=== PATIENT | female | born 1960 | race Caucasian/White ===

== ENCOUNTER 2025-07-07 14:58 | Outpatient (REF) | payer OTHER, SELFPAY | END 2025-07-07 14:59 | disposition home or self-care (01) | LOC: HO.LAB 14:58 | PROVIDERS: PCP Family Medicine; Visit Provider Physician Assistant Medical | DX: R30.0 Dysuria (principal); R39.15 Urgency of urination; Z13.89 Encounter for screening for other disorder | CPT/HCPCS: 81003; 87086; 87088; 87186 ==

== ENCOUNTER 2025-07-07 14:58 | Outpatient (AMB) | payer OTHER, SELFPAY ==
[2025-07-07 15:05] VITALS: BP 120/80; PULSE 75; TEMP 36.6; O2SAT 98; BMI 30.4
--- NOTE | 2025-07-07 15:05 | MHC.OFFWIV ---
Intake Vital Signs 07/07/25 15:05 Height 5 ft 4 in Weight 177 lb BMI 30.4 BP 120/80 Blood Pressure Location Lt brachial Position Sitting Pulse 75 Pulse Source Pulse Oximeter Temp 98 F Temp Source Oral Pulse Oximetry (%) 98 Oxygen Delivery Method Room Air Intake Visit Reasons: EP Possible UTI Intake Note: Patient presents c/o urinary pressure, urgency, burning since yesterday Allergies No Known Allergies Allergy (Verified 07/07/25 15:11) HPI HPI Comments History of Present Illness Details History - The patient is a 65 year old individual presenting with symptoms consistent with a urinary tract infection, which began yesterday. - The patient reports urinary urgency, burning, and the onset of pressure today. - The patient denies any associated back pain, visible blood in the urine, fevers, chills, nausea, or vaginal discharge. - The patient has not had a urinary tract infection recently and has not taken any recent antibiotics. - The patient is postmenopausal and has no history of kidney stones. - There are no known allergies to antibiotics. Physical Exam General: Cooperative, healthy appearing, comfortable, no acute distress and well developed Cardiac: Normal S1 and S2. RRR, no M/R/G noted. Respiratory: Normal respiratory effort and able to speak in complete sentences. Clear to auscultation bilaterally. No w/r/r noted. Skin: No rashes or lesions noted. GI: Normal inspection. Normal BS noted. Soft, non-tender, non-distended. No TTP of all 4 quadrants. No guarding or rebound tenderness noted. Back: Negative CVA bilaterally Patient was informed and verbally consented to the use of an ambient scribe for clinic note documentation during this visit. Review of Systems Const All systems reviewed & are unremarkable except as noted in HPI and below Physical Exam Vital Signs: Last Vital Signs Temp 98 F 07/07/25 15:05 Pulse 75 07/07/25 15:05 BP 120/80 07/07/25 15:05 Pulse Ox 98 07/07/25 15:05 Oxygen Delivery Method Room Air 07/07/25 15:05 BMI result Body Mass Index 30.4 Results AMB Urinalysis, Automated UA Leukoctes 0 Roderick/uL Last Edit by Regina Bee CMA on 07/07/25 15:16 UA Nitrite Negative Last Edit by Regina Bee CMA on 07/07/25 15:16 UA Urobilinogen 0.2 mg/dL Last Edit by Regina Bee, [employer] on 07/07/25 15:16 UA Protein 0 mg/dL Last Edit by Regina Bee, [employer] on 07/07/25 15:16 UA pH 6.0 Last Edit by Regina Bee, [employer] on 07/07/25 15:16 UA Blood 80 Unruly/uL Last Edit by Regina Bee, [employer] on 07/07/25 15:16 UA Specific [place] 1.025 Last Edit by Regina Bee, [facility] on 07/07/25 15:16 UA Ketone Negative Last Edit by Regina Bee, [employer] on 07/07/25 15:16 UA Bilirubin 0 mg/dL Last Edit by Regina Bee, [employer] on 07/07/25 15:16 UA Glucose 0 mg/dL Last Edit by Regina Bee, [employer] on 07/07/25 15:16 Results Reviewed Results Reviewed: Laboratory Last Values Urine pH (Auto) 6.0 07/07/25 15:15 Specific [place] (Auto) 1.025 07/07/25 15:15 Urine Protein (Auto) 0 mg/dL 07/07/25 15:15 Glucose (UA)(Auto) 0 mg/dL 07/07/25 15:15 Urine Ketones (Auto) Negative 07/07/25 15:15 Urine Blood (Auto) 80 Unruly/uL H* 07/07/25 15:15 Urine Nitrite (Auto) Negative 07/07/25 15:15 Urine Bilirubin (Auto) 0 mg/dL 07/07/25 15:15 Urine Urobilinogen (Auto) 0.2 mg/dL 07/07/25 15:15 Leukocyte Esterase (Auto) 0 Roderick/uL 07/07/25 15:15 Assessment & Plan Assessment & Plan (1) Dysuria: Code(s): R30.0 - Dysuria Plan Most likely early UTI UA 2+ blood Plan - A urine dipstick test was performed, revealing a small amount of blood, which is consistent with an early urinary tract infection. - An antibiotic will be prescribed to begin treatment for a presumed E. coli infection. - A urine culture will be sent for analysis to confirm the causative bacteria. - The patient was advised to drink plenty of fluids and cranberry juice. - A follow-up call is scheduled for Saturday to discuss the culture results and adjust the antibiotic if necessary. Orders: Orders Urine Culture Today N39.0 - Urinary tract infection, site not specified AMB Urinalysis Automated Today Z13.9 - Encounter for screening, unspecified Medications: New cefuroxime axetil 500 mg PO Q12H 10 tabs 0RF Coding Level of Care Code Est Pt Level 3 (79823) Diagnoses Dysuria R30.0
--- OUTSIDE RECORDS SUMMARY | 2025-07-07 17:35 | XMS_ITS | Encounter Summary ---
Author Organization [facility] Address [address] [place] [id number] Phone Care Team Providers Care Pain Management Specialist Name Role Phone Soraida Baker MD Unavailable [phone] Soraida Baker MD Primary Care Provider Encounter Details Date Type Department Care Team ([facility] st Contact Info) Description 01/31/2021 Ancillary Orders [facility], X-Ray - [address] [place] [address] Sangita Keen, [place] [address] [place] [address] Pain disorder Social History Tobacco Use Types Packs/Day Years Used Date Smoking Tobacco: Never Assessed Comments Unknown Sex and Gender Information Value Date Recorded Sex Assigned at Not on file Legal Sex Female 8:33 PM EDT Gender Identity Not on file Sexual Orientation Not on file documented as of this encounter Plan of Treatment Not on file documented as of this encounter Results * XR SHOULDER 2 VIEWS (BILATERAL) (01/31/2021 12:05 PM EDT) Anatomical Region Laterality Modality Shoulder Left Computed Radiogr aphy 01/31/2021 12:1 3 PM EDT Impressions 01/31/2021 12:15 PM EDT No findings to account for pain. Narrative 01/31/2021 12:15 PM EDT HISTORY: As above. COMPARISON: None. BILATERAL SHOULDER RADIOGRAPH FINDINGS: 8 images obtained. No acute fracture or malalignment. Joint spaces are preserved. No destructive or suspicious bone lesions. No rotator cuff calcifications. Imaged lungs are clear. Procedure Note Pablo Cody MD - 01/31/2021 HISTORY: As above. COMPARISON: None. BILATERAL SHOULDER RADIOGRAPH FINDINGS: 8 images obtained. No acute fracture or malalignment. Joint spaces are preserved. Nodestructive or suspicious bone lesions. No rotator cuff calcifications.Imaged lungs are clear. IMPRESSION: No findings to account for pain. us Sangita Mojica DC IMG XR UPPER EXTRE MITY Final Result documented in this encounter Visit Diagnoses Diagnosis Pain disorder Generalized pain Pain disorder Generalized pain documented in this encounter Care Teams Pain Management Specialist Relationship Specialty Start Date End Date Soraida Baker MD [address] [place] [id number] PCP - General Family Medicine 01/31/21 Soraida Baker MD [address] [place] [phone] Historical LMR Provider 05/29/17 2 documented as of this encounter Additional Source Comments The information contained in this document represents components of the legal health record. It is not the complete legal health record.[facility]
--- OUTSIDE RECORDS SUMMARY | 2025-07-07 17:35 | XMS_ITS | Clinical Summary ---
Author Organization [facility] Address [address] [place] [address] Phone Care Team Providers Care [employer] Technical Lead Senior Developer Name Role Phone Soraida Baker MD Primary Care Provider [phone] Social History Tobacco Use Types Packs/Day Years Used Date Smoking Tobacco: Never Assessed Comments No Sex and Gender Information Value Date Recorded Sex Assigned at Not on file Legal Sex Female 11:48 PM EST Gender Identity Not on file Sexual Orientation Not on file Obstetrics History Para Term AB IAB SAB Ectopic Multiple Livin g Live Births 2 Last Filed Vital Signs Vital Sign Reading Time Taken Comments Blood Pressure - - Pulse - - Temperature - - Respiratory Rate - - Oxygen Saturation - - Inhaled Oxygen Concentration - - Weight 74.8 kg (165 lb) 08/21/2024 10:42 AM EST Height 162.6 cm (5' 4 ) 08/21/2024 10:42 AM EST Body Mass Index 28.32 08/21/2024 10:42 AM EST Plan of Treatment Health Maintenance Due Date Last Done Comments Colorectal Cancer Screening: Colonoscopy 1962 Cervical Cancer Screening: Pap Smear 1983 Pneumococcal Vaccine: 50+ Years (1 of 1 - PCV) 2012 Zoster Vaccines (1 of 2) 2012 HIV Screening 07/15/2022 Hepatitis C Screening 07/15/2022 Social Influencers of Health Screening 07/15/2022 Depression Screening 08/12/2024 COVID-19 Vaccine ( season) 2025 06/04/2024, 06/05/2022, 12/21/2021, Additional history exists Influenza Vaccine (#1) 2025 4, 06/04/2023, 05/28/2022, Additional history exists Breast Cancer Screening 08/21/2026 08/21/19 25, 07/19/2023, 07/17/2022, Additional history exists DTaP,Tdap,and Td Vaccines (2 - Td or Tdap) 01/01/2028 12/31/2017 RSV Immunization Adult Patients (1 - 1-dose 75+ series) 2037 MMR Vaccines Aged Out 11/24/2008 No longer eligi ble based on patient's age to complete this topic HIB Vaccines Aged Out No longer eligi ble based on patient's age to complete this topic HPV Vaccines Aged Out No longer eligi ble based on patient's age to complete this topic Hepatitis A Vaccines Aged Out No long er eligible based on patient's age to complete this topic Hepatitis B Vaccines Aged Out No long er eligible based on patient's age to complete this topic IPV Vaccines Aged Out No longer eligi ble based on patient's age to complete this topic Meningococcal ACWY Vaccine Aged Out N o longer eligible based on patient's age to complete this topic Meningococcal B Vaccine Aged Out No l onger eligible based on patient's age to complete this topic RSV Immunization Patients Under 20 months Aged Out No longer eligible based on patient's age to complete this topic Varicella Vaccines Aged Out No longer eligible based on patient's age to complete this topic Procedures Procedure Name Priority Date/Time Associated Diagnosis Comments MG MAMMO DIGITAL SCREENING W JI BILAT Routine 08/21/2024 11:01 AM EST Encounter for screening mammogram for breast cancer from Last 3 Months or Most Recently Relevant to Health Maintenance Results * MG Mammo Digital Screening w Ji bilat (08/21/2024 11:01 AM EST) Anatomical Region Laterality Modality Breast Bilateral Mammography 08/21/2024 11:1 2 AM EST Impressions 08/21/2024 11:14 AM EST No mammographic evidence of malignancy. A negative mammogram in the presence of a clinically suspicious palpable abnormality does not preclude the possibility of malignancy or alter the indications for biopsy. PQRI CPT II 3341F Code 27163, 44569 PQRI 225 CPT II 7025F TISSUE DENSITY: There are scattered areas of fibroglandular density. (BI-RADS category B) IMPRESSION: Benign. BI-RADS CATEGORY: 1 - NEGATIVE RECOMMENDATION: Screening bilateral mammogram is recommended in 1 year. Mammo Location: [facility], [address] [place] [id number] -------- FINAL REPORT -------- Dictated By: Christos Black Dictated Date: 08/21/2024 11:12 ET Assigned Physician: Christos Black Reviewed and Electronically Signed By: Christos Black Signed Date: 08/21/2024 11:14 ET Workstation ID: [id number] Transcribed By: Self Edit Transcribed Date: 08/21/2024 11:12 ET Narrative 08/21/2024 11:14 AM EST CLINICAL: The patient is a 64 years Female presenting for routine screening mammography. COMPARISON: Most recently 07/19/2023 and most remotely 03/27/2017. TECHNIQUE: Full-field digital mammography of the breasts bilaterally consisting of tomosynthesis in MLO and CC projection is performed in the gDine 2000-D unit. Computer aided detection utilizing the iCAD system was utilized. FINDINGS: The breasts are again seen to be composed of a combination of fatty and fibroglandular elements. There is no cluster of microcalcifications, mass, or area of architectural distortion. There is no skin thickening or nipple retraction. Procedure Note Christos Black MD - 08/21/2024 CLINICAL: The patient is a 64 years Female presenting for routinescreening mammography. COMPARISON: Most recently 07/19/2023 and most remotely 03/27/2017. TECHNIQUE: Full-field digital mammography of the breasts bilaterallyconsisting of tomosynthesis in MLO and CC projection is performed in the[employer] 2000-D unit. Computer aided detection utilizing the iCADsystem was utilized. FINDINGS: The breasts are again seen to be composed of a combination offatty and fibroglandular elements. There is no cluster ofmicrocalcifications, mass, or area of architectural distortion. There isno skin thickening or nipple retraction. IMPRESSION: No mammographic evidence of malignancy. A negative mammogram in the presence of a clinically suspicious palpableabnormality does not preclude the possibility of malignancy or alter theindications for biopsy. PQRI CPT II 3341F Code 27210, 47915 PQRI 225 CPT II 7025F TISSUE DENSITY: There are scattered areas of fibroglandular density.(BI-RADS category B) IMPRESSION: Benign. BI-RADS CATEGORY: 1 - NEGATIVE RECOMMENDATION: Screening bilateral mammogram is recommended in 1 year. Mammo Location: [facility], [address] [place] [id number] -------- FINAL REPORT -------- Dictated By: Christos Black Dictated Date: 08/21/2024 11:12 ET Assigned Physician: Christos Black Reviewed and Electronically Signed By: Christos Black Signed Date: 08/21/2024 11:14 ET Workstation ID: [id number] Transcribed By: Self Edit Transcribed Date: 08/21/2024 11:12 ET us Self Referral Sppl IMG BI PROCEDURES Final Resul t from Last 3 Months or Most Recently Relevant to Health Maintenance Insurance [facility] Care Teams Centura Technical Lead Senior Developer Relationship Specialty Start Date End Date Soraida Baker MD [address] [place] [address], [address] [place] [address] PCP - General Family Medicine 07/27/24
--- OUTSIDE RECORDS SUMMARY | 2025-07-07 17:35 | XMS_ITS | Clinical Summary ---
Author Organization [facility] Address [address] [place] [phone] Phone Care Team Providers Care Paper Tube Machine Operator Name Role Phone Soraida Baker MD Primary Care Provider Social History Tobacco Use Types Packs/Day Years Used Date Smoking Tobacco: Never Assessed Education Answer Date Recorded Are you interested in more education? Not on john e 12/07/2022 Are you concerned about learning? Not on file 12/07/2022 No 12/07/2022 No 12/07/2022 Digital Access Answer Date Recorded No 01/07/2023 No 01/07/2023 Reliable internet access at home? Not on file 01/07/2023 Device with a working camera? Not on file Comments Unknown Sex and Gender Information Value Date Recorded Sex Assigned at Not on file Legal Sex Female 8:33 PM EDT Gender Identity Not on file Sexual Orientation Not on file Last Filed Vital Signs Vital Sign Reading Time Taken Comments Blood Pressure 134/74 03/19/2012 9:28 AM EDT Pulse - - Temperature - - Respiratory Rate - - Oxygen Saturation - - Inhaled Oxygen Concentration - - Weight 71.7 kg (158 lb) 03/19/2012 9:28 AM EDT Height 162.6 cm (5' 4 ) 03/19/2012 9:28 AM EDT Body Mass Index 27.12 03/19/2012 9:28 AM EDT Plan of Treatment Not on file Medical Devices Not on file Care Teams Paper Tube Machine Operator Relationship Specialty Start Date End Date Soraida Baker MD [address] [place] [id number] PCP - General Family Medicine 01/31/21 Additional Source Comments The information contained in this document represents components of the legal health record. It is not the complete legal health record[facility]
== END 2025-07-07 15:49 | disposition home or self-care (01) ==
PROVIDERS: PCP Family Medicine; Visit Provider Physician Assistant Medical
DX: R30.0 Dysuria (principal); Z13.9 Encounter for screening, unspecified